=== PATIENT | male | born 1990 | race African-American/Black ===

== ENCOUNTER 2022-05-28 11:46 | Emergency (ER) | payer OTHER ==
[~2022-05-28] VITALS: Ht 188 cm; Wt 86.3 kg
[2022-05-28] MEDS ORDERED: methocarbamoL 750 MG TAB PO ONE (18:05)
[2022-05-28] MEDS ORDERED: METH-1165 PO ×2 (18:16→18:51)
[2022-05-28] MEDS ORDERED: BIOF4GEL4 TOP ×2 (18:16→18:51)
[2022-05-28 18:30] VITALS: BP 134/71
== END 2022-05-28 18:37 | disposition home or self-care (01) ==
LOC: M ED 11:46
DX: M79.601 Pain in right arm (principal); X50.3XXA Overexertion from repetitive movements, initial encounter; Z79.891 Long term (current) use of opiate analgesic; Y92.9 Unspecified place or not applicable; Y93.89 Activity, other specified; Y99.0 Civilian activity done for income or pay; Z79.899 Other long term (current) drug therapy

== ENCOUNTER → 2022-05-31 | Outpatient (CLI) | payer OTHER ==
[~2022-05-31] MED LIST: BIOF4GEL4 TOP; METH-1165 PO
== END ==
LOC: M SOG 10:47
PROVIDERS: ATTEND Physician Assistant
DX: M25.511 Pain in right shoulder (principal); M25.521 Pain in right elbow

== ENCOUNTER → 2022-06-08 | Outpatient (CLI) | payer OTHER ==
[2022-06-08 10:45] LABS: BASO % 0.6 % (0.0-1.0); EOS # 0.1 10^3/uL (0.0-0.5); EOS % 0.8 % (0.0-3.0); HEMATOCRIT 48.3 % (42.0-52.0); HEMOGLOBIN 14.8 g/dl (13.5-17.5); LYMPH # 1.9 10^3/uL (1.5-5.0); LYMPH % 26.8 % (24.0-44.0); MEAN CORPUSCULAR HEMOGLOBIN 23.6 pg (27.0-33.0); MEAN CORPUSCULAR HGB CONC 30.6 g/dl (32.0-36.5); MEAN CORPUSCULAR VOLUME 77.2 fl (80.0-96.0); MONO # 0.8 10^3/uL (0.0-0.8); MONO % 11.1 % (2.0-8.0); NEUTROPHILS # 4.3 10^3/uL (1.5-8.5); NEUTROPHILS % 60.6 % (36.0-66.0); PLATELET COUNT, AUTOMATED 243 10^3/uL (150-450); RED BLOOD COUNT 6.26 10^6/uL (4.30-6.10); WHITE BLOOD COUNT 7.1 10^3/uL (4.0-10.0)
[2022-06-08 11:12] LABS: BLOOD UREA NITROGEN 12 MG/DL (9-23); CALCIUM LEVEL 9.1 MG/DL (8.5-10.1); CARBON DIOXIDE LEVEL 28 MMOL/L (20-31); CHLORIDE LEVEL 106 MMOL/L (98-107); CREATININE FOR GFR 0.89 MG/DL (0.70-1.30); GLOMERULAR FILTRATION RATE > 60.0 (>60); GLUCOSE, FASTING 91 MG/DL (60-100); POTASSIUM SERUM 4.2 MMOL/L (3.5-5.1); SODIUM LEVEL 141 MMOL/L (136-145)
[2022-06-08 11:22] LABS: RHEUMATOID FACTOR QUANT < 3.5 IU/ML (<14)
[2022-06-16 00:11] LABS: ANCA-ATYPICAL <1:20 titer (Neg:<1:20); ANGIOTENSIN 1 CONVERTING ENZYM 20 U/L (14-82); ANTINUCLEAR ANTIBODIES DIRECT Negative (Negative); CYTOPLASMIC NEUTROP AB ANCA-C <1:20 titer (Neg:<1:20); HLA-B27 Positive (.); PERINUCLEAR AB ANCA-P <1:20 titer (Neg:<1:20)
== END ==
LOC: M RAD 10:05
PROVIDERS: ATTEND Ophthalmology
DX: H20.9 Unspecified iridocyclitis (principal)

== ENCOUNTER 2022-06-29 10:40 | Outpatient (RCR) | payer OTHER, SELFPAY | END 2022-07-03 | LOC: M OT 10:40 | PROVIDERS: ATTEND Orthopaedic Surgery Hand Surgery | DX: M25.521 Pain in right elbow (principal) ==

== ENCOUNTER 2022-07-27 12:00 | Outpatient (RCR) | payer OTHER | END 2022-08-03 | LOC: M OT 12:00 | PROVIDERS: ATTEND Orthopaedic Surgery Hand Surgery | DX: M25.521 Pain in right elbow (principal) ==

== ENCOUNTER → 2022-10-31 | Outpatient (CLI) | payer OTHER ==
[2022-11-03 14:13] LABS: CYTOMEGALOVIRUS IgM ANTIBODY <30.0 AU/mL (0.0-29.9); HERPES ZOSTER, VARICELLA IgG 1791 index (Immune >165); HERPES ZOSTER, VARICELLA IgM 0.94 index (0.00-0.90)
[2022-11-05 12:02] LABS: HIV 1&2 SCREEN REACTIVE (NEGATIVE)
== END ==
LOC: M LAB 11:53
PROVIDERS: ATTEND Ophthalmology
DX: H20.022 Recurrent acute iridocyclitis, left eye (principal)

== ENCOUNTER → 2022-12-13 | Outpatient (CLI) | payer OTHER ==
[2022-12-13 15:05] LABS: APPEARANCE, URINE CLEAR (CLEAR); BACTERIA, URINE AUTO NEGATIVE (NEGATIVE); BILIRUBIN, URINE AUTO NEGATIVE (NEGATIVE); BLOOD, URINE BLOOD NEGATIVE (NEGATIVE); COLOR, URINE YELLOW (YELLOW); GLUCOSE, URINE (UA) AUTO NEGATIVE (NEGATIVE); KETONE, URINE AUTO 1+ mg/dL (NEGATIVE); LEUKOCYTE ESTERASE, URINE AUTO NEGATIVE (NEGATIVE); MUCUS, URINE SMALL (NEGATIVE); NITRITE, URINE AUTO NEGATIVE (NEGATIVE); PROTEIN, URINE AUTO NEGATIVE (NEGATIVE); RBC, URINE AUTO 1 /HPF (0-3); SPECIFIC GRAVITY URINE AUTO 1.027 (1.002-1.035); SQUAMOUS EPITHELIAL CELL UR AU 0 /HPF (0-6); WBC, URINE AUTO 1 /HPF (0-3)
[2022-12-13 15:15] LABS: HEPATITIS B SURFACE ANTIBODY POSITIVE (POSITIVE)
[2022-12-13 15:16] LABS: ALBUMIN 4.5 G/DL (3.2-5.2); ALKALINE PHOSPHATASE 65 U/L (46-116); ALT/SGPT 17 U/L (7.0-40); AST/SGOT 74 U/L (<34); BILIRUBIN,TOTAL 0.8 MG/DL (0.3-1.2); BLOOD UREA NITROGEN 16 MG/DL (9-23); CALCIUM LEVEL 9.3 MG/DL (8.5-10.1); CARBON DIOXIDE LEVEL 27 MMOL/L (20-31); CHLORIDE LEVEL 101 MMOL/L (98-107); CREATININE FOR GFR 0.95 MG/DL (0.70-1.30); GLOMERULAR FILTRATION RATE > 60.0 (>60); GLUCOSE, FASTING 70 MG/DL (60-100); POTASSIUM SERUM 4.1 MMOL/L (3.5-5.1); SODIUM LEVEL 137 MMOL/L (136-145); TOTAL PROTEIN 7.8 G/DL (5.7-8.2)
[2022-12-13 15:49] LABS: HEPATITIS C VIRUS ABY INDEX 0.15 INDEX (<0.8)
[2022-12-13 16:22] LABS: GC DNA AMPLIFICATION NEGATIVE (NEGATIVE)
== END ==
LOC: M PLALAB 09:41
PROVIDERS: ATTEND Internal Medicine Infectious Disease
DX: Z11.3 Encounter for screening for infections with a predominantly sexual mode of transmission (principal); Z21 Asymptomatic human immunodeficiency virus [HIV] infection status; Z78.9 Other specified health status

== ENCOUNTER → 2023-02-07 | Outpatient (CLI) | payer OTHER ==
[2023-02-07 11:59] LABS: ALBUMIN 4.1 G/DL (3.2-5.2); ALKALINE PHOSPHATASE 51 U/L (46-116); ALT/SGPT 14 U/L (7.0-40); AST/SGOT 47 U/L (<34); BILIRUBIN,TOTAL 0.8 MG/DL (0.3-1.2); BLOOD UREA NITROGEN 11 MG/DL (9-23); CALCIUM LEVEL 9.1 MG/DL (8.5-10.1); CARBON DIOXIDE LEVEL 28 MMOL/L (20-31); CHLORIDE LEVEL 105 MMOL/L (98-107); CREATININE FOR GFR 1.04 MG/DL (0.70-1.30); GLOMERULAR FILTRATION RATE > 60.0 (>60); GLUCOSE, FASTING 88 MG/DL (60-100); POTASSIUM SERUM 4.3 MMOL/L (3.5-5.1); SODIUM LEVEL 139 MMOL/L (136-145)
[2023-02-08 17:08] LABS: % CD8 Pos Lymph 27.6 % (12.0-35.5); %CD4 Pos Lymphs 28.6 % (30.8-58.5); ABS Eosinophils 0.1 x10E3/uL (0.0-0.4); ABS Lymphs 1.5 x10E3/uL (0.7-3.1); ABS Monocytes 0.5 x10E3/uL (0.1-0.9); Abs CD4 Helper 429 /uL (359-1519); Abs CD8 Suppres 414 /uL (109-897); CD4/CD8 Ratio 1.04 (0.92-3.72); Eosinophils 1 % (Not Estab.); HCT 42.6 % (37.5-51.0); HGB 13.5 g/dL (13.0-17.7); HIV-1 RNA PCR QUANT 2 LC550285 <20 copies/mL (.); Immature Grans 0 % (Not Estab.); Lymphocytes 29 % (Not Estab.); MCH 23.7 pg (26.6-33.0); MCHC 31.7 g/dL (31.5-35.7); MCV 75 fL (79-97); Monocytes 9 % (Not Estab.); Neutrophils 60 % (Not Estab.); Platelets 255 x10E3/uL (150-450); RDW 16.1 % (11.6-15.4)
== END ==
LOC: M PLALAB 08:23
PROVIDERS: ATTEND Internal Medicine Infectious Disease
DX: Z21 Asymptomatic human immunodeficiency virus [HIV] infection status (principal)

== ENCOUNTER 2023-02-19 14:21 | Emergency (ER) | payer OTHER ==
[~2023-02-19] VITALS: Ht 185.4 cm; Wt 85.4 kg
[2023-02-19] MEDS ORDERED: KETOROLAC 60MG 2ML VIAL IM ONE (17:20)
[2023-02-19] MEDS ORDERED: ACETAMINOPHEN TAB 650MG DOSE (2X325MG) PO ONE (17:20)
[2023-02-19] MEDS ORDERED: LIDOCAINE 5% (LIDODERM) PATCH TD ONE (17:20)
[2023-02-19] MEDS ORDERED: KETO10TAB PO (18:03)
[2023-02-19] MEDS ORDERED: METH-1164 PO (18:03)
[2023-02-19 18:06] VITALS: BP 116/65; TEMP 98.1; O2SAT 100
== END 2023-02-19 18:11 | disposition home or self-care (01) ==
LOC: M ED 14:21
DX: M54.32 Sciatica, left side (principal); F12.10 Cannabis abuse, uncomplicated; Z79.1 Long term (current) use of non-steroidal anti-inflammatories (NSAID); Z79.891 Long term (current) use of opiate analgesic
CPT/HCPCS: 72110; 96372; 99283; J1885

== ENCOUNTER → 2024-01-09 | Outpatient (CLI) | payer BC, OTHER ==
[~2024-01-09] MED LIST changes: +KETO10TAB PO; +METH-1164 PO
[2024-01-09 19:22] LABS: ALBUMIN 4.4 G/DL (3.2-5.2); ALKALINE PHOSPHATASE 44 U/L (46-116); ALT/SGPT 30 U/L (7.0-40); AST/SGOT 62 U/L (<34); BILIRUBIN,TOTAL 0.7 MG/DL (0.3-1.2); BLOOD UREA NITROGEN 10 MG/DL (9-23); CALCIUM LEVEL 10.2 MG/DL (8.5-10.1); CARBON DIOXIDE LEVEL 29 MMOL/L (20-31); CHLORIDE LEVEL 107 MMOL/L (98-107); CREATININE FOR GFR 1.15 MG/DL (0.70-1.30); GLOMERULAR FILTRATION RATE > 60.0 (>60); GLUCOSE, FASTING 115 MG/DL (60-100); POTASSIUM SERUM 4.5 MMOL/L (3.5-5.1); SODIUM LEVEL 139 MMOL/L (136-145); TOTAL PROTEIN 7.5 G/DL (5.7-8.2)
[2024-01-10 12:09] LABS: ABSOLUTE CD4 HELPER 496 /uL (359-1519); BASOPHILS 1 % (Not Estab.); EOSINOPHILS 3 % (Not Estab.); EOSINOPHILS ABSOLUTE 0.1 x10E3/uL (0.0-0.4); HCT 49.2 % (37.5-51.0); HGB 15.7 g/dL (13.0-17.7); LYMPHOCYTES 41 % (Not Estab.); LYMPHOCYTES ABSOLUTE 1.6 x10E3/uL (0.7-3.1); MCH 24.3 pg (26.6-33.0); MCHC 31.9 g/dL (31.5-35.7); MCV 76 fL (79-97); MONOCYTES 11 % (Not Estab.); MONOCYTES ABSOLUTE 0.4 x10E3/uL (0.1-0.9); NEUTROPHILS 44 % (Not Estab.); NEUTROPHILS ABSOLUTE 1.8 x10E3/uL (1.4-7.0); PLT 241 x10E3/uL (150-450); RBC 6.45 x10E6/uL (4.14-5.80); RDW 14.9 % (11.6-15.4); WBC 3.9 x10E3/uL (3.4-10.8)
[2024-01-11 16:46] LABS: HEPATITIS C VIRUS ABY INDEX < 0.02 INDEX (<0.8)
[2024-01-14 13:11] LABS: HIV-1 RNA PCR QUANT 2 NOT DETECTED copies/mL (NOT DETECTED); HIV-1 RNA PCR QUANT 3 NOT DETECTED (NOT DETECTED)
== END ==
LOC: M PLALAB 11:44
PROVIDERS: ATTEND Internal Medicine Infectious Disease
DX: B20 Human immunodeficiency virus [HIV] disease (principal)